=== PATIENT | female | born 1970 | race Caucasian/White ===

== ENCOUNTER 2017-01-08 08:55 | Outpatient (CLI) | payer OTHER | END 2017-01-08 11:23 | LOC: D.MAMMO 08:55 | DX: Z12.31 Encounter for screening mammogram for malignant neoplasm of breast (principal) ==

== ENCOUNTER → 2018-01-13 17:48 | Outpatient (CLI) | payer OTHER | END | disposition home or self-care (01) | LOC: D.MAMMO 13:00 | DX: Z12.31 Encounter for screening mammogram for malignant neoplasm of breast (principal) ==

== ENCOUNTER 2019-01-19 08:00 | Outpatient (CLI) | payer OTHER | END 2019-01-19 23:59 | disposition home or self-care (01) | LOC: D.MAMMO 08:00 | PROVIDERS: ATTEND Emergency Medicine | DX: Z12.31 Encounter for screening mammogram for malignant neoplasm of breast (principal) ==

== ENCOUNTER → 2020-02-22 08:54 | Outpatient (CLI) | payer BC | END | disposition home or self-care (01) | LOC: D.HCCARDIO 08:54 | PROVIDERS: ATTEND Internal Medicine Cardiovascular Disease | DX: I20.9 Angina pectoris, unspecified (principal) ==

== ENCOUNTER 2020-02-28 16:30 | Outpatient (CLI) | payer MEDICAID | END 2020-02-28 23:59 | disposition home or self-care (01) | LOC: D.MAMMO 16:30 | PROVIDERS: ATTEND Emergency Medicine | DX: Z12.31 Encounter for screening mammogram for malignant neoplasm of breast (principal) ==

== ENCOUNTER 2020-03-08 06:06 | Day surgery (SDC) | payer BC, OTHER ==
[~2020-03-08] VITALS: Ht 162.6 cm; Wt 102.7 kg
--- NOTE | ~2020-03-08 | HEMODYNAMI ---
PATIENT:LEVON HARVEY MEDICAL RECORD: [id number] : 70 LOCATION:[facility] ADMISSION DATE: 03/08/20 Generatedon:03/08/20208:28 Patient name: LEVON HARVEY Patient #: [id number] SSN: [id number] : 1970 Date of study: 03/08/2020 Page: Of Hemodynamic Procedure Report Patient Data Patient Demographics Procedure consent was obtained First Name: LEVON Gender: Female Last Name: WES : 1970 [facility] Initial: CHEN Age: 49 year(s) Patient #: [id number] Race: SSN: [id number] Additional ID: [id number] Contact details Address: [address] [place] [address] State: [place] City: [place] Zip code: [address] Past Medical History Performed procedures and imaging results Date Procedure Procedure Results Comments 02/22/2020 Stress testing Positive->Intermediate with SPECT MPI risk Allergies: No known allergies Admission Admission Data Admission Date: 03/08/2020 Admission Time: 6:06 Arrival Date: 03/08/2020 Arrival Time: 0:00 Admit Source: Other Insurance Payor: Private health insurance [facility] #: [id number] Height (in.): 64 BSA: 2.06 (m2) Height (cm.): 162.56 BMI: 38.87 (kg/m2) Weight (lbs.): 226.46 Weight (kg.): 102.72 Lab Results Lab Result Date: 03/08/2020 Lab Result Time: 0:00 Biochemistry Name Units Result Min Max BUN mg/dl 15 --(--*-)-- 7 18 Creatinine mg/dl 1 --(--*-)-- 0.6 1.3 eGFR ml/min 61.64634 *-(----)-- 90 120 NONAFRICAN CBC Name Units Result Min Max Hematocrit % 40.9 -*(----)-- 42 54 Hemoglobin g/dl 13.3 -*(----)-- 13.5 17.5 Procedure Procedure Types Cath Procedure Diagnostic Procedure C [facility] w/Coronaries Sedation Charges Moderate Sedation up to 15 minutes Procedure Description Procedure Date Procedure Date: 03/08/2020 Procedure Start Time: 8:13 Procedure End Time: 8:27 Procedure Staff Name Function Franky Chan MD Performing Physician Rober Valentine RN Nurse Nithya Lee RT Scrub Aminah French RT Monitor Procedure Data Cath Procedure Fluoroscopy Diagnostic fluoroscopy Total fluoroscopy Time: 2.7 time: 2.7 min min Diagnostic fluoroscopy Total fluoroscopy dose: 487 dose: 487 mGy mGy Contrast Material Contrast Material Type Amount (ml) Isovue 370 67 Entry Location Entry Primary Successful Side Size Upsize Upsize Entry Closure Gomez ccessful Closure Location (Fr) 1 (Fr) 2 (Fr) Remarks Device Remarks Radial Right 6 Fr Mechanical artery Short Compression Estimated blood loss: 5 ml Diagnostic catheters Device Type Used For End Catheter Placement DIAGNOSTIC [employer] 110cm 5 Procedure Fr catheter ([id number]) DIAGNOSTIC AR MOD 5Fr Procedure Catheter (090326E) Procedure Complications No complications Procedure Medications Medication Administration Route Dosage Oxygen etCO2 Nasal cannula 2 l/min Lidocaine 2% added to field 20 Heparin Flush Bag added to field 2 bags (1000units/500ml NS) 0.9% NaCl I.V. 100 ml/hr Versed I.V. 2 mg Fentanyl I.V. 50 mcg Radial Cocktail I.A. 1 syringe (Verapamil 2mg/Nitro 400mcg/Heparin 1500units) Versed I.V. 1 mg Versed I.V. 1 mg Hemodynamics Rest BSA: 2.06 (m2) HGB: 13.3 (g/dl) O2 Consumption: Estimated: 208.94 (ml/min) O2 Co nsumption indexed: Estimated:101.43 (ml/min/m) Heart Rate: 78 (bpm) Pressure Samples Time Site Value (mmHg) Purpose Heart Use Rate(bpm) 8:16 LV 133/52,57 Snapshot 111 8:16 LV 96/27,44 Snapshot 115 8:17 AO 106/56(73) Pullback 96 8:17 LV 109/6,14 Pullback 96 Gradients Valve Time Site 1 Site 2 Mean SEP/DFP Peak To Heart Use (mmHg) (sec/min) Peak Rate (mmHg) (bpm) Aortic 8:17 LV AO 8 8 3 96 109/6,14 106/56(73) Calculations Valve P-P Mean Valve Index Valve Source Name Gradient Area Flow (cm2) Aortic 3 8 3 8 Snapshots Pre Cath Intra NCS Post Cath Vital Signs Time Heart Resp SPO2 etCO2 NIBP (mmHg) Rhythm Pain Sedation Rate (ipm) (%) (mmHg) Status Level (bpm) 7:54:46 81 27 98 32.3 121/83(113) NSR 0 (11) 10(A) , No pain 7:59:04 72 19 100 33.8 115/61(92) NSR 0 (11) 10(A) , No pain 8:03:22 76 12 100 27.8 109/65(87) NSR 0 (11) 10(A) , No pain 8:07:38 73 10 100 37.5 110/61(91) NSR 0 (11) 10(A) , No pain 8:11:48 73 26 99 42.1 115/70(97) NSR 0 (11) 10(A) , No pain 8:16:06 131 14 98 41.3 103/63(75) NSR 0 (11) 10(A) , No pain 8:20:20 91 16 97 39.8 102/62(74) NSR 0 (11) 10(A) , No pain 8:24:34 81 13 96 42.8 110/61(79) NSR 0 (11) 10(A) , No pain Medications Time Medication Route Dose Verified Delivered Reason Notes Effectiveness by by 7:53:55 Oxygen etCO2 2 l/min Franky Buffie used for Nasal Dustin Valentine RN procedure cannula 7:54:01 Lidocaine 2% added 20ml Franky Franky for local to vial Dustin Chan MD anesthetic field 7:54:07 Heparin Flush added 2 bags Franky Franky used for Bag to Dustin Chan MD procedure (1000units/500ml field NS) 7:54:14 0.9% NaCl I.V. 100 Franky Buffie Per ml/hr Dustin Valentine RN physician 8:05:24 Versed I.V. 2 mg Franky Buffie for sedation Dustin Valentine RN 8:05:30 Fentanyl I.V. 50 mcg Franky Buffie for sedation Dustin Valentine RN 8:15:24 Radial Cocktail I.A. 1 Franky Franky for (Verapamil syringe Dustin Chan MD vasodilation 2mg/Nitro 400mcg/Heparin 1500units) 8:15:32 Versed I.V. 1 mg Franky Buffie for sedation Dustin Valentine RN 8:20:42 Versed I.V. 1 mg Franky Buffie for sedation Dustin Valentine RN Procedure Log Time Note 7:24:41 Informed consent obtained and on chart 7:29:41 Arrival Date: 03/08/2020 12:00:00 AM 7:29:42 Admit Source: Other 7:30:13 Insurance Payor : Private health insurance 7:30:25 Patient Height : 64 inches 7:30:31 Patient Weight : 226.46 lbs 7:30:49 Lab Result : Hematocrit 40.9 % 7:30:49 Lab Result : Hemoglobin 13.3 g/dl 7:31:20 Diagnostic Cath Status : Elective 7:31:33 Lab results completed and on chart. 7:31:58 Stress Test: yes; abnormal ANTERIOR 7:32:12 Alarms reviewed by R. N. 7:32:12 Sharps counted by scrub and verified by R.N. 7:33:18 Procedure Status Elective Heart Cath (OP). 7:33:22 Time tracking: Regular hours (M-F 7:00 - 5:00) 7:33:27 Plan of Care:Hemodynamics will remain stable., Cardiac rhythm will remain stable., Comfort level will be maintained., Respiratory function will remain adequate., Patient/ family verbilizes understanding of procedure., Procedure tolerated without complication., Recovers from procedure without complications.. 7:34:01 H&P Date Dictated: 02/06/2020 Within 30 days and on chart.. 7:34:03 Pre-procedure instructions explained to patient. 7:34:04 Pre-op teaching completed and patient verbalized understanding. 7:34:06 Family in waiting room. 7:34:08 Patient NPO since Midnight. 7:34:14 Patient allergic to No known allergies 7:37:22 Rober Valentine RN sent for patient. Start room use. 7:44:32 Patient received from Pre/Post Procedure Room to CCL 1 Alert and oriented. Tansferred to table in Supine position. 7:44:33 Warm blankets applied, and panfilo hugger turned on for patient comfort. 7:44:33 Correct patient and procedure confirmed by team. 7:44:34 ECG and BP/O2 sat monitors applied to patient. 7:53:41 Vital chart was started 7:53:55 Oxygen 2 l/min etCO2 Nasal cannula was administered by Rober Valentine RN; used for procedure; Verbal order read back and verified. 7:54:01 Lidocaine 2% 20ml vial added to field was administered by Franky Chan MD; for local anesthetic; Verbal order read back and verified. 7:54:07 Heparin Flush Bag (1000units/500ml NS) 2 bags added to field was administered by Franky Chan MD; used for procedure; Verbal order read back and verified. 7:54:14 0.9% NaCl 100 ml/hr I.V. was administered by Rober Valentine RN; Per physician; Verbal order read back and verified. 7:55:36 Baseline sample Acquired. 7:55:37 Full Disclosure recording started 7:55:39 Is the patient allergic to Iodine/contrast media? No. 7:55:41 Was the patient premedicated? N/A 7:55:43 Is patient on blood thinner?No 7:55:45 Patient diabetic? No. 7:55:47 If diabetic: On Metformin? N/A 7:55:51 ----Pre-sedation anethsthesia assessment.---- 7:55:55 Previous problem with sedation/anesthesia? No ? 7:55:56 Snore? Yes 7:55:58 Sleep apnea? Unknown 7:55:59 Deviated septum? No 7:56:00 Opens mouth fully? Yes 7:56:01 Sticks out tongue? Yes 7:56:03 Airway obstruction? No ? 7:56:05 Dentures? No ? 7:56:08 Pre procedure: right dorsailis pedis pulse 2+ Normal; easily identifiable; not easily obliterated 7:56:11 Modified Domingo's test Ulnar < 7 seconds 7:56:15 Patient pain scale 0/10 ?. 7:56:23 IV patent on arrival in left forearm with 0.9% NaCl at [facility]. 7:56:33 Right Radial & Right Groin area was prepped with chlora-prep and draped in sterile fashion 7:56:39 Rhythm: sinus rhythm 7:57:51 Lab Result : eGFR NONAFRICAN 61.04569 ml/min 7:57:51 Lab Result : Creatinine 1 mg/dl 7:57:51 Lab Result : BUN 15 mg/dl 7:58:12 Risk of Mortality: 0.3 7:58:15 Risk of blood transfusion: 0.2 7:58:18 Risk of DAGO: 0.1 7:58:23 Use device set Radial Dx or PCI 7:58:24 ACIST Syringe (74269) opened to sterile field. 7:58:25 Medline Cath Pack ([id number]) opened to sterile field. 7:58:25 Bag Decanter (2002S) opened to sterile field. 7:58:26 ACIST Hand Control (35693) opened to sterile field. 7:58:26 ACIST Manifold (86228) opened to sterile field. 7:58:28 MBrace Wrist Support ([id number]) opened to sterile field. 7:58:29 NEEDLE Cook 21G 4cm Radial (C78368) opened to sterile field. 7:58:31 EMERALD Guide Wire (952-937) opened to sterile field. 7:58:31 SHEATH 6FR RAIN (3118787) opened to sterile field. 8:03:43 --------ALL STOP TIME OUT------ 8:03:44 Final Timeout: patient, procedure, and site verified with staff and physician. All members of the team are in agreement. 8:03:46 Right Radial & Right Groin site verified by team. 8:03:49 Fire Safety Assessment: A--An alcohol-based skin anteseptic being used preoperatively., C--Open oxygen or nitrous oxide is being used., D--An ESU, laser, or fiber-optic light is being used. 8:03:57 Physical assessment completed. ASA score P 2 - A patient with mild systemic disease as per Franky Chan MD. 8:04:00 2) 60-89 Mildly reduced kidney function, and other findings (as for stage 1) point to kidney disease. 8:04:14 Maximum allowable contrast dose (3.7 X eGFR X 0.75)172 ml. 8:04:18 Sedation plan: IV Moderate Sedation Medication:Versed, Fentanyl 8:05:24 Versed 2 mg I.V. was administered by Rober Valentine RN; for sedation; Verbal order read back and verified. 8:05:30 Fentanyl 50 mcg I.V. was administered by Rober Valentine RN; for sedation; Verbal order read back and verified. 8:13:28 Procedure started. 8:13:41 Local anesthetic to right radial artery with Lidocaine 2% by Franky Chan MD.INITIAL ACCESS ONLY 8:14:57 A 6 Fr Short sheath was inserted into the Right Radial artery 8:15:24 Radial Cocktail (Verapamil 2mg/Nitro 400mcg/Heparin 1500units) 1 syringe I.A. was administered by Franky Chan MD; for vasodilation; Verbal order read back and verified. 8:15:24 A DIAGNOSTIC [employer] 110cm 5 Fr catheter (948128) was advanced over the wire and used for Procedure. 8:15:32 Versed 1 mg I.V. was administered by Rober Valentine RN; for sedation; Verbal order read back and verified. 8:15:57 LV gram done using DAVIES 8:16:11 Injector settings: Ml/sec: 5, Volume: 15, 8:16:34 LV hemodynamics recorded. 8:16:44 EF : 55 % 8:17:30 LCA angiography performed. 8:17:34 Injector settings: Ml/sec: 3, Volume: 6, 8:20:42 Versed 1 mg I.V. was administered by Rober Valentine RN; for sedation; Verbal order read back and verified. 8:21:09 Catheter exchanged over wire. 8:21:50 A DIAGNOSTIC AR MOD 5Fr Catheter ([id number]) was advanced over the wire and used for Procedure. 8:22:49 RCA angiography performed. 8:22:52 Injector settings: Ml/sec: 3, Volume: 6, 8:22:55 ACCDominant side:Co-Dominant 8:23:29 Catheter removed. 8:23:34 ZEPHYR REGULAR TR BAND (242579) opened to sterile field. 8:23:46 Sheath removed intact; hemostasis achieved with Mechanical Compression to the Right Radial artery. 8:23:52 Fluoroscopy time 02.70 minutes. 8:23:56 Fluoroscopy dose: 487 mGy 8:23:56 Flurop Dose total: 487 8:24:03 Dose Area Product 19557 mGy/cm. 8:24:05 Procedure ended.(Physican Out) 8:24:14 Contrast amount:Isovue 370 67ml. 8:24:16 Maximum allowable dose exceeded? No. 8:24:17 Sharps counted by scrub and verified by R.N. 8:24:19 Post Procedure Pulses reassessed and unchanged 8:24:22 Post procedure: right dorsailis pedis pulse 2+ Normal; easily identifiable; not easily obliterated. 8:24:26 Post-procedure physical assessment completed. ASA score P 2 - A patient with mild systemic disease as per Franky Chan MD. 8:24:30 Post procedure rhythm: sinus rhythm 8:24:34 Estimated blood loss: 5 ml 8:24:35 Post procedure instruction explained to patient.Patient verbalizes understanding. 8:24:36 Patient needs reinforcement of post procedure teaching. 8:24:56 Procedure type changed to Cath procedure, Diagnostic procedure, LHC, LHC w/Coronaries, Sedation Charges, Moderate Sedation up to 15 minutes 8:25:16 Procedure and supply charges have been captured, reviewed, submitted and are correct. 8:25:20 Procedure Complication : No complications 8:25:22 Vital chart was stopped 8:25:31 [facility] Findings: mild to moderate CAD (<70%) 8:25:32 Operative report dictated upon procedure completion. 8:25:33 See physician's report for complete and final results. 8:25:35 Report given to Pre/Post Procedure Room. 8:25:38 Patient transfered to Pre/Post Procedure Room with Stretcher. 8:27:04 [place] band inflated with 12cc of air. 8:27:18 Procedure ended. 8:27:18 Full Disclosure recording stopped 8:27:21 End room use (Document Last) 8:27:32 End room use (Document Last) 8:27:57 End room use (Document Last) Device Usage Item Name Manufacture Quantity Catalog Hospital Part Current Minima l Lot# / Number Charge Number Stock Stock Serial# Code ACIST Acist 1 89942 [id number] [id number] 20 Syringe Medical (41579) Systems Inc Medline Medline 1 [id number] 678463 69999 688240 5 Cath Pack ([id number]) Bag Microtek 1 758978 65907 487700 5 Decanter Medical Inc. () ACIST Hand Acist 1 22585 760991 847185 891097 5 Control Medical (91925) Systems Inc ACIST Acist 1 88087 966775 813917 542032 5 Manifold Medical (82278) Systems Inc MBrace Advanced 1 140-0250-00 510548 77168 722713 5 Wrist Vascular Support Dynamics ([id number]) NEEDLE Cook Cook Medical 1 [id number] 989860 394065 409659 5 21G 4cm Radial (P42137) EMERALD Cardinal 1 502-455 737537 456374 095780 5 Guide Wire Health (502455) SHEATH 6FR Cardinal 1 [id number] 419565 0469561 577201 5 [facility] Health (6325062) DIAGNOSTIC Terumo 1 40-7123 190657 193636 724912 5 [employer] 110cm 5 Fr catheter (529013) DIAGNOSTIC Cardinal 1 [id number] 466548 541632 828595 15 AR MOD 5Fr Health Catheter (616411D) ZEPHYR Cardinal 1 998896 861652 6198311 435845 5 REGULAR TR Health BAND (128339) Signature Audit [place] Stage Time Signature Unsigned Intra-Procedure 03/08/2020 Aminah French 8:27:32 AM RT(R) Intra-Procedure 03/08/2020 Rober Valentine RN 8:27:57 AM Intra-Procedure 03/08/2020 Franky Chan MD 8:28:42 AM [facility] [address] [place] [address]
[2020-03-08] MEDS ORDERED: OMEPRAZOLE20 M1 PO (06:41)
[2020-03-08] MEDS ORDERED: COZAAR100 MG PO (06:42)
[2020-03-08] MEDS ORDERED: TOPROL XL50 MG PO (06:42)
[2020-03-08 06:51] VITALS: BP 117/57; Ht 162.6 cm; Wt 102.7 kg
[2020-03-08 07:10] LABS: BASOPHILS 0.4 % (0-2); EOSINOPHILS 2.4 % (0-7); HEMATOCRIT 40.9 % (36.0-48.0); HEMOGLOBIN 13.3 g/dL (12-16); IMMATURE GRANULOCYTES 0.2 % (0-5); LYMPHOCYTES 30.8 % (15-50); MCH 28.4 pg (26.0-34.0); MCHC 32.5 g/dL (31.0-37.0); MCV 87.2 fL (80.0-100.0); MONOCYTES 11.5 % (2-11); NEUTROPHILS 54.7 % (40-80); PLATELET COUNT 247 10x3/uL (130-400); RBC 4.69 10x6/uL (4.00-5.40); RDW 13.6 % (11.5-14.5); WBC 5.4 10x3/uL (4.8-10.8)
[2020-03-08 07:33] LABS: CHOL - HDL RATIO 3.6 ratio (2.3-4.1)
[2020-03-08 07:42] LABS: ANION GAP 10.3 mmol/L (8-16); POTASSIUM - SERUM 4.3 mmol/L (3.5-5.1)
--- NOTE | 2020-03-08 08:40 | NUR ---
PT RECEIVED VIA STRETCHER FROM [employer] FOR RECOVERY. PT AWAKE, SLIGHTLY DROWSY. DENIES PAIN OR DISCOMFORT. IV PATENT INFUSING VIA L ARM PER ORDERS. ZYPHER BAND AND IMMOBILIZER IN PLACE, NO S/S HEMATOMA OR BLEEDING NOTED. ARM PINK AND WARM, CAP REFILL BRISK. PT INSTRUCTED NOT TO USE ARM, SHE VERBALIZED UNDERSTANDING. PT PLACED ON CARDIAC MONITORS, HR 74, BP 104/53, RR 15, SAT 99 ON ROOM AIR. CALL LIGHT IN REACH.
--- NOTE | 2020-03-08 09:00 | NUR ---
PT RESTING COMFORTABLY, DENIES PAIN OR NEEDS. ZBAND AND IMMOBILIZER IN PLACE, DRESSING CDI NO S/S HEMATOMA OR BLEEDING. PT TOLERATING PO FLUIDS W/O DIFFICULITIES. CALL LIGHT IN REACH
--- NOTE | 2020-03-08 09:40 | NUR ---
PT DOING WELL, DENIES PAIN OR DISCOMFORT. 5CC AIR REMOVED FROM Z BAND, NO BLEEDING OR S/S HEMATOMA NOTED. PT AMBULATED TO BR, VOIDING W/O DIFFICULITY. [address] DR PYLE AT , DISCUSSED W PT PROCEDURE RESULTS AND PLAN OF CARE. NO NEW ORDERS RECEIVED.
--- NOTE | 2020-03-08 10:19 | NUR ---
3 CC AIR REMOVED REMOVED FROM Z BAND, NO S/S HEMATOMA OR BLEEDING . PT DENIES PAIN OR DISCOMFORT. VSS.
--- NOTE | 2020-03-08 10:41 | NUR ---
DISCHARGE INSTRUCTIONS REVIEWED W PT AND , BOTH VERBALIZED UNDERSTANDING. IV REMOVED W CATH INTACT, MONITORS REMOVED AND PT UP TO DRESS FOR DISCHARGE.
--- NOTE | 2020-03-08 10:45 | NUR ---
ZBAND AND IMMOBILIZER REMOVED, NO BLEEDING OR S/S HEMATOMA NOTED. 2X2 AND SM TEGADERM DRESSING APPLIED. PT DISCHARGED VIA WC TO WAITING IN PRIVATE VEHICLE. PT HAD ALL BELONGINGS AND DISCHARGE PAPERWORK
== END 2020-03-08 10:45 | disposition home or self-care (01) ==
LOC: D.CATH 06:06
PROVIDERS: ATTEND Internal Medicine Cardiovascular Disease
DX: I20.9 Angina pectoris, unspecified (principal); R94.39 Abnormal result of other cardiovascular function study; I10 Essential (primary) hypertension; R00.2 Palpitations

== ENCOUNTER 2020-04-03 07:36 | Day surgery (SDC) | payer BC ==
[~2020-04-03] VITALS: Ht 165.1 cm; Wt 100.0 kg
--- NOTE | ~2020-04-03 | HEMODYNAMI ---
PATIENT:LEVON HARVEY MEDICAL RECORD: [id number] : 70 LOCATION:[facility] ADMISSION DATE: 04/03/20 Generatedon:04/03/202010:54 Patient name: LEVON HARVEY Patient #: [id number] SSN: [id number] : 1970 Date of study: 04/03/2020 Page: Of Hemodynamic Procedure Report Patient Data Patient Demographics Procedure consent was obtained First Name: LEVON Gender: Female Last Name: WES : 1970 [facility] Initial: CHEN Age: 49 year(s) Patient #: [id number] Race: SSN: [id number] Additional ID: [id number] Contact details Address: [address] [place] [address] State: [place] City: [place] Zip code: [address] Past Medical History Allergies: No known allergies Admission Admission Data Admission Date: 04/03/2020 Admission Time: 7:36 Arrival Date: 04/03/2020 Arrival Time: 0:00 Admit Source: Other Insurance Payor: Private health insurance [facility] #: [id number] Height (in.): 66 BSA: 2.08 (m2) Height (cm.): 167.64 BMI: 35.51 (kg/m2) Weight (lbs.): 220 Weight (kg.): 99.79 Lab Results Lab Result Date: 04/03/2020 Lab Result Time: 0:00 CBC Name Units Result Min Max Hemoglobin g/dl 14.4 --(*---)-- 13.5 17.5 Procedure Procedure Types Cath Procedure Diagnostic Procedure Right Heart Right Heart Cath Sedation Charges Moderate Sedation up to 15 minutes Procedure Description Procedure Date Procedure Date: 04/03/2020 Procedure Start Time: 10:17 Procedure End Time: 10:52 Procedure Staff Name Function Franky Chan MD Performing Physician Katy Young RT Monitor Rober Valentine RN Nurse Marimar Carmona RT Scrub Indication Shortness of breath Procedure Data Cath Procedure Fluoroscopy Diagnostic fluoroscopy Total fluoroscopy Time: 3.2 time: 3.2 min min Diagnostic fluoroscopy Total fluoroscopy dose: 171 dose: 171 mGy mGy Entry Location Entry Primary Successful Side Size Upsize Upsize Entry Closure Succes sful Closure Location (Fr) 1 (Fr) 2 (Fr) Remarks Device Remarks Femoral Right 7 Fr vein Short Estimated blood loss: 5 ml Diagnostic catheters Device Type Used For End Catheter Placement SWAN 7Fr Thermodilution Pressure cather (131F7P) Measurement Procedure Complications No complications Procedure Medications Medication Administration Route Dosage Lidocaine 2% added to field 20 Heparin Flush Bag added to field 2 bags (1000units/500ml NS) 0.9% NaCl I.V. 100 ml/hr Versed I.V. 1 mg Fentanyl I.V. 50 mcg Versed I.V. 1 mg Fentanyl I.V. 50 mcg Oxygen etCO2 Nasal cannula 2 l/min Versed I.V. 1 mg Hemodynamics Rest BSA: 2.08 (m2) HGB: 14.4 (g/dl) O2 Consumption: Estimated: 199.45 (ml/min) O2 Co nsumption indexed: Estimated:95.89 (ml/min/m) Heart Rate: 64 (bpm) Oxygen Saturations Time Location Saturations Hgb (g/dl) O2 Content Use (%) (ml/L) 10:28 PAL 75.2 10:38 RV 79 10:39 RA 82.4 10:39 SVC 81.4 10:41 IVC 78.1 10:42 PAR 78.8 10:44 RVOT 78.5 Pressure Samples Time Site Value (mmHg) Purpose Heart Use Rate(bpm) 10:31 PA 50/31(36) Snapshot 64 10:31 PA 44/24(30) Snapshot 66 10:32 PCW 19/19(18) Snapshot 64 10:34 PA 39/16(26) Snapshot 73 10:34 RV 40/6,13 Snapshot 73 10:36 RA 15/15(13) Snapshot 64 Calculations Content (ml/l) O2 Difference (ml/l) O2 MV 157.8 PV-PA([place]) Snapshots Pre Cath Intra NCS Post Cath Vital Signs Time Heart Resp SPO2 etCO2 NIBP Rhythm Pain Sedation Rate (ipm) (%) (mmHg) (mmHg) Status Level (bpm) 10:03:04 66 16 98 35.1 116/63(80) NSR 0 (11) 10(A) , No pain 10:07:18 64 28 98 25.4 116/61(87) NSR 0 (11) 10(A) , No pain 10:11:34 61 15 98 41.1 122/63(87) NSR 0 (11) 10(A) , No pain 10:15:52 66 31 98 41.9 113/59(86) NSR 0 (11) 10(A) , No pain 10:20:06 61 15 98 44.1 113/55(75) NSR 0 (11) 10(A) , No pain 10:24:20 59 17 98 43.3 107/53(72) NSR 0 (11) 10(A) , No pain 10:28:32 68 10 93 44.1 92/60(87) NSR 0 (11) 10(A) , No pain 10:32:37 64 19 97 21.6 93/64(73) NSR 0 (11) 9(A) , No pain 10:36:45 71 13 98 50.7 100/58(78) NSR 0 (11) 9(A) , No pain 10:40:55 68 13 99 34.3 103/59(88) NSR 0 (11) 10(A) , No pain 10:45:07 74 14 99 47.8 106/56(81) NSR 0 (11) 10(A) , No pain 10:49:19 71 20 99 40.3 76/60(65) NSR 0 (11) 10(A) , No pain 10:52:05 64 14 99 45.5 107/60(74) NSR 0 (11) 10(A) , No pain Medications Time Medication Route Dose Verified Delivered Reason Notes Eff ectiveness by by 10:02:17 Lidocaine 2% added 20ml Franky Franky for local to vial Dustin Chan MD anesthetic field 10:02:41 Heparin Flush added 2 Franky Franky used for Bag to bags Dustin Chan MD procedure (1000units/500ml field NS) 10:02:49 0.9% NaCl I.V. 100 Franky Buffie Per ml/hr Dustin Valentine RN physician 10:14:36 Oxygen etCO2 2 Franky Buffie used for Nasal l/min Dustin Valentine RN procedure cannula 10:17:35 Versed I.V. 1 mg Franky Buffie for Dustin Valentine RN sedation 10:17:41 Fentanyl I.V. 50 Franky Buffie for mcg Dustin Valentine RN sedation 10:24:44 Versed I.V. 1 mg Franky Buffie for Dustin Valentine RN sedation 10:24:47 Fentanyl I.V. 50 Franky Buffie for mcg Dustin Valentine RN sedation 10:30:33 Versed I.V. 1 mg Franky Buffie for Dustin Valentine RN sedation Procedure Log Time Note 9:45:26 Arrival Date: 04/03/2020 12:00:00 AM 9:45:54 Admit Source: Other 9:45:56 Insurance Payor : Private health insurance 9:46:19 Patient Height : 66 inches 9:46:26 Patient Weight : 220 lbs 9:50:13 Lab Result : Hemoglobin 14.4 g/dl 9:50:25 Diagnostic Cath Status : Elective 9:50:54 Indication : Shortness of breath 9:51:11 Procedure Status Elective Heart Cath (OP). 9:51:15 Rober Valentine RN sent for patient. Start room use. 9:51:17 Time tracking: Regular hours (M-F 7:00 - 5:00) 9:51:21 Plan of Care:Hemodynamics will remain stable., Cardiac rhythm will remain stable., Comfort level will be maintained., Respiratory function will remain adequate., Patient/ family verbilizes understanding of procedure., Procedure tolerated without complication., Recovers from procedure without complications.. 9:51:27 Patient received from Pre/Post Procedure Room to CCL 2 Alert and oriented. Tansferred to table in Supine position. 9:51:30 Signed procedure consent form obtained from patient. 9:51:31 Warm blankets applied, and panfilo hugger turned on for patient comfort. 9:51:32 Correct patient and procedure confirmed by team. 9:51:35 ECG and BP/O2 sat monitors applied to patient. 9:51:42 H&P Date Dictated: 04/03/2020 Within 30 days and on chart.. 9:51:45 Pre-procedure instructions explained to patient. 9:51:47 Family in waiting room. 9:51:53 Patient NPO since Midnight. 9:52:00 Patient allergic to No known allergies 9:52:11 Is the patient allergic to Iodine/contrast media? No. 9:52:12 Was the patient premedicated? Yes 9:52:14 Is patient on blood thinner?No 9:52:34 Patient diabetic? No. 9:52:57 Previous problem with sedation/anesthesia? No ? 9:53:12 Snore? Yes 9:53:25 Sleep apnea? No 9:53:30 Dentures? No ? 9:53:42 Patient pain scale 0/10 SOB. 9:53:51 IV patent on arrival in left forearm with 0.9% NaCl at [facility]. 9:53:57 Lab results completed and on chart. 9:54:04 Right groin area was prepped with chlora-prep and draped in sterile fashion 9:54:05 Alarms reviewed by R. N. 9:54:06 Sharps counted by scrub and verified by R.N. 9:55:42 Use device set Right Heart Kit 9:55:48 Use device set Femoral Dx 10:01:57 Vital chart was started 10:02:17 Lidocaine 2% 20ml vial added to field was administered by Franky Chan MD; for local anesthetic; Verbal order read back and verified. 10:02:41 Heparin Flush Bag (1000units/500ml NS) 2 bags added to field was administered by Franky Chan MD; used for procedure; Verbal order read back and verified. 10:02:49 0.9% NaCl 100 ml/hr I.V. was administered by Rober Valentine RN; Per physician; Verbal order read back and verified. 10:14:36 Oxygen 2 l/min etCO2 Nasal cannula was administered by Rober Valentine RN; used for procedure; Verbal order read back and verified. 10:16:13 Physician arrived 10:16:14 --------ALL STOP TIME OUT------ 10:16:14 Final Timeout: patient, procedure, and site verified with staff and physician. All members of the team are in agreement. 10:16:17 Right groin site verified by team. 10:16:21 Fire Safety Assessment: A--An alcohol-based skin anteseptic being used preoperatively., C--Open oxygen or nitrous oxide is being used., D--An ESU, laser, or fiber-optic light is being used. 10:16:31 Physical assessment completed. ASA score P 2 - A patient with mild systemic disease as per Franky Chan MD. 10:16:37 Sedation plan: IV Moderate Sedation Medication:Versed, Fentanyl 10:16:48 Procedure started. 10:16:49 Full Disclosure recording started 10:17:26 Local anesthetic to right femoral vein with Lidocaine 1% by Franky Chan MD.INITIAL ACCESS ONLY 10:17:35 Versed 1 mg I.V. was administered by Rober Valentine RN; for sedation; Verbal order read back and verified. 10:17:41 Fentanyl 50 mcg I.V. was administered by Rober Valentine RN; for sedation; Verbal order read back and verified. 10:22:21 SHEATH 7FR Gaston (XLH479) opened to sterile field. 10:22:30 Bag Decanter (2002S) opened to sterile field. 10:22:30 Medline Cath Pack ([id number]) opened to sterile field. 10:22:42 CAIS Guide Wire (020-638) opened to sterile field. 10:24:44 Versed 1 mg I.V. was administered by Rober Valentine RN; for sedation; Verbal order read back and verified. 10:24:47 Fentanyl 50 mcg I.V. was administered by Rober Valentine RN; for sedation; Verbal order read back and verified. 10:27:00 A 7 Fr Short sheath was inserted into the Right Femoral vein 10:27:43 A SWAN 7Fr Thermodilution cather (131F7P) was advanced over the wire and used for Pressure Measurement. 10:28:00 Right Heart 10:28:00 Zanoni-Walt "C" tip catheter inserted 10:28:53 Left PA saturation: 75.2% 10:30:33 Versed 1 mg I.V. was administered by Rober Valentine RN; for sedation; Verbal order read back and verified. 10:32:21 ACIST Syringe (07480) opened to sterile field. 10:32:23 ACIST Hand Control (68593) opened to sterile field. 10:32:24 ACIST Manifold (92872) opened to sterile field. 10:38:55 RV saturation: 79% 10:39:24 RA saturation: 82.4% 10:39:33 SVC saturation: 81.4% 10:41:00 IVC saturation: 78.1% 10:42:28 Right PA saturation: 78.8% 10:44:12 RVOT saturation: 78.5% 10:47:34 Right heart pressures obtained. 10:47:38 Zanoni-Walt removed. 10:47:48 Procedure ended.(Physican Out) 10:48:03 Fluoroscopy time 03.20 minutes. 10:48:07 Flurop Dose total: 171 10:48:07 Fluoroscopy dose: 171 mGy 10:48:13 Dose Area Product 66039 mGy/cm. 10:48:18 Sharps counted by scrub and verified by R.N. 10:48:33 Insertion/operative site no bleeding no hematoma. 10:48:40 Post right femoral vein:stable 10:48:45 Post Procedure Pulses reassessed and unchanged 10:48:50 Estimated blood loss: 5 ml 10:48:52 Post procedure instruction explained to patient.Patient verbalizes understanding. 10:49:41 Procedure type changed to Cath procedure, Diagnostic procedure, Right Heart, Right Heart Cath, Sedation Charges, Moderate Sedation up to 15 minutes 10:49:43 Procedure and supply charges have been captured, reviewed, submitted and are correct. 10:50:48 Procedure Complication : No complications 10:51:35 Vital chart was stopped 10:51:38 RHC Findings: no evidence of underlying pulmonary disease 10:51:40 Operative report dictated upon procedure completion. 10:51:41 See physician's report for complete and final results. 10:52:49 Report given to Pre/Post Procedure Room. 10:52:53 Patient transfered to Pre/Post Procedure Room with Stretcher. 10:52:55 Procedure ended. 10:52:55 Full Disclosure recording stopped 10:53:04 End room use (Document Last) Device Usage Item Name Manufacture Quantity Catalog Hospital Part Current Minima l Lot# / Number Charge Number Stock Stock Serial# Code SHEATH 7FR Terumo 1 [id number] [id number] [id number] 5 Gaston ([id number]) Bag Decanter Microtek 1 790200 97697 576297 5 () [employer] Medline Cath Medline 1 [id number] 770831 46019 842279 5 Pack ([id number]) EMERALD Guide Cardinal 1 292-349 775770 303489 583752 5 Wire (043-216) Health SWAN 7Fr Weldon 1 131F7P [id number] [id number] 3 Thermodilution Lifesciences cather (131F7P) ACIST Syringe Acist 1 16708 309757 697517 738028 20 (89822) [employer] Inc ACIST Hand Acist 1 23162 733188 755397 113658 5 Control Medical (61908) Systems Inc ACIST Manifold Acist 1 35710 894324 878093 369963 5 (91620) [employer] Signature Audit [place] Stage Time Signature Unsigned Intra-Procedure 04/03/2020 Katy Young 10:53:34 AM RT(R) Intra-Procedure 04/03/2020 Rober Valentine RN 10:54:00 AM Intra-Procedure 04/03/2020 Franky Chan MD 10:54:28 AM Signatures Performing Physician : Signature : Franky Chan MD Date : Time : Monitor : Katy Young Signature : RT Date : Time : Nurse : Rober Valentine RN Signature : Date : Time : [facility] [address] [place] [address]
[~2020-04-03 07:36] MED LIST: COZAAR100 MG PO; OMEPRAZOLE20 M1 PO; TOPROL XL50 MG PO
[2020-04-03] MEDS ORDERED: LOSARTAN-HCTZ1 EAC1 PO (08:32)
[2020-04-03 08:43] VITALS: BP 117/66; Ht 165.1 cm; Wt 100.0 kg
[2020-04-03 08:59] LABS: BASOPHILS 0.2 % (0-2); EOSINOPHILS 0 % (0-7); HEMOGLOBIN 14.4 g/dL (12-16); LYMPHOCYTES 31.4 % (15-50); MCH 28.2 pg (26.0-34.0); MCHC 32.7 g/dL (31.0-37.0); MCV 86.3 fL (80.0-100.0); MEAN PLATELET VOLUME 9.8 fL (7.4-10.4); MONOCYTES 8.7 % (2-11); NEUTROPHILS 59.7 % (40-80); PLATELET COUNT 235 10x3/uL (130-400); RDW 13.5 % (11.5-14.5); WBC 5.8 10x3/uL (4.8-10.8)
[2020-04-03 09:54] LABS: ANION GAP 11.5 mmol/L (8-16); CARBON DIOXIDE 27.2 mmol/L (21.0-32.0); CHOL - HDL RATIO 3.4 ratio (2.3-4.1); CREATININE - SERUM 0.9 mg/dL (0.6-1.3); POTASSIUM - SERUM 3.7 mmol/L (3.5-5.1)
--- NOTE | 2020-04-03 11:01 | NUR ---
PT ARRIVED BY STRETCHER. PLACED ON MONITORS. ASSESSMENT COMPLETED. VSS AT THIS TIME. FAMILY AT BEDSIDE. DR. PYLE ROUNDED AND SPOKE WITH PT'S AND UPDATED HIM ON PLAN OF CARE.
--- NOTE | 2020-04-03 11:16 | NUR ---
PT RESTING COMFORTABLY. RIGHT GROIN DRESSING C/D/I. NO S/S OF HEMATOMA NOTED. VSS. PT RESTING COMFORTABLY. TALENT SCOUT AT BEDSIDE FOR ECHO. RIGHT PEDAL PULSE PALPABLE.
--- NOTE | 2020-04-03 11:45 | NUR ---
RIGHT GROIN DRESSING C/D/I. NO S/S OF HEMATOMA NOTED. CALL LIGHT WITHIN REACH. VSS AT THIS TIME.
--- NOTE | 2020-04-03 12:00 | NUR ---
RIGHT GROIN DRESSING C/D/I. NO S/S OF HEMATOMA NOTED. CALL LIGHT WITHIN REACH. VSS AT THIS TIME. HEAD OF BED INC TO 30 DEGREES. TOLERATED WELL. SET UP WITH SANDWICH TRAY AND DRINK. DENIES NAUSEA.
--- NOTE | 2020-04-03 12:40 | NUR ---
RIGHT GROIN DRESSING C/D/I. NO S/S OF HEMATOMA NOTED. CALL LIGHT WITHIN REACH. VSS AT THIS TIME. PIV D/C'D WITH CATH TIP INTACT. TOLERATED WELL. DISCUSSED DISCHARGE INSTRUCTIONS WITH PT AND PT'S FAMILY. THEY VOICED UNDERSTANDING. PT INSTRUCTED TO GET UP AND DRESSED AT THIS TIME. FAMILY AT BEDSIDE TO ASSIST.
--- NOTE | 2020-04-03 12:45 | NUR ---
RIGHT GROIN DRESSING C/D/I. NO S/S OF HEMATOMA NOTED. PT AMBULATED TO RESTROOM. VOIDED WITHOUT DIFFICULTY. STEADY GAIT NOTED. PT TAKEN OUT TO VEHICLE BY WHEELCHAIR. NO S/S OF DISTRESS NOTED. ALL BELONGINGS AND PAPERWORK IN HAND.
== END 2020-04-03 12:45 | disposition home or self-care (01) ==
LOC: D.CATH 07:36
PROVIDERS: ATTEND Internal Medicine Cardiovascular Disease
DX: I10 Essential (primary) hypertension (principal); R00.0 Tachycardia, unspecified; I20.9 Angina pectoris, unspecified; R00.2 Palpitations

== ENCOUNTER → 2020-04-18 08:13 | Outpatient (CLI) | payer BC ==
[2020-04-03 08:43] VITALS: BMI 36.6
[~2020-04-18 08:13] MED LIST changes: +LOSARTAN-HCTZ1 EAC1 PO
== END | disposition home or self-care (01) ==
LOC: D.RT 08:13
PROVIDERS: ATTEND Internal Medicine Cardiovascular Disease
DX: R06.02 Shortness of breath (principal)

== ENCOUNTER → 2020-05-01 08:55 | Outpatient (CLI) | payer BC ==
[2020-04-03 08:43] VITALS: BMI 36.6
== END | disposition home or self-care (01) ==
LOC: D.RT 04-30 09:00
PROVIDERS: ATTEND Internal Medicine Cardiovascular Disease
DX: R06.00 Dyspnea, unspecified (principal)

== ENCOUNTER → 2020-05-21 08:24 | Outpatient (CLI) | payer BC ==
[2020-04-03 08:43] VITALS: BMI 36.6
== END | disposition home or self-care (01) ==
LOC: D.ECHO 05-09 10:35
PROVIDERS: ATTEND Internal Medicine Cardiovascular Disease
DX: Q24.5 Malformation of coronary vessels (principal)